=== PATIENT | female | born 1995 | race African-American/Black ===

== ENCOUNTER 2019-10-12 16:57 | Outpatient (CLI) | payer OTHER ==
[2019-10-12 17:42] LABS: APPEARANCE,URINE SLIGHTLY-CLOUDY; BILIRUBIN,URINE NEGATIVE (NEGATIVE); CALCIUM OXALATE CRYSTALS,URINE FEW /HPF; COLOR,URINE YELLOW; GLUCOSE, URINE NEGATIVE (NEGATIVE); KETONES,URINE NEGATIVE (NEGATIVE); LEUKOCYTE ESTERASE,URINE NEGATIVE (NEGATIVE); NITRITE,URINE NEGATIVE (NEGATIVE); PROTEIN,URINE 30 mg/dL (NEGATIVE); URINE SPECIFIC GRAVITY 1.029; UROBILINOGEN,URINE NEGATIVE mg/dL (<2.0)
[2019-10-12 17:57] LABS: URINE AMPHETAMINES SCREEN NEGATIVE; URINE BARBITURATES SCREEN NEGATIVE; URINE BENZODIAZEPINES SCREEN NEGATIVE; URINE COCAINE SCREEN NEGATIVE; URINE MARIJUANA (THC) SCREEN NEGATIVE; URINE METHADONE SCREEN NEGATIVE; URINE PHENCYCLIDINE SCREEN NEGATIVE
[2019-10-12] MEDS ORDERED: BUTALB/ACETAMINOPHEN/CAFFEINE 1 TAB EACH PO ONE (18:54)
[2019-10-12] MEDS ORDERED: PROMETHAZINE HCL INJ 50 MG/1 ML VIAL IM PRN (19:14)
[2019-10-12] MEDS ORDERED: PROMETHAZINE HCL INJ 25 MG/1 ML VIAL ONE (19:20)
[2019-10-12] MEDS ORDERED: BUTALB/ACETAMINOPHEN/CAFFEINE 1 TAB EACH ONE (19:20)
[2019-10-12] MEDS ORDERED: PROMETHAZINE HCL INJ 25 MG/1 ML VIAL IM PRN (19:21)
== END 2019-10-12 19:41 | disposition home or self-care (01) ==
LOC: LC 16:57
PROVIDERS: ATTEND Obstetrics & Gynecology
DX: O21.2 Late vomiting of pregnancy (principal); O26.892 Other specified pregnancy related conditions, second trimester; Z3A.22 22 weeks gestation of pregnancy
CPT/HCPCS: 81001; 80307; 59899; J3490; J2550

== ENCOUNTER 2020-01-19 11:29 | Outpatient (CLI) | payer OTHER, MEDICAID ==
[2020-01-19 12:22] LABS: ABSOLUTE EOSINOPHILS # (AUTO) 0.1 10^3/uL (0.0-0.6); ABSOLUTE LYMPHOCYTES (AUTO) 2.3 10^3/uL (0.5-4.7); ABSOLUTE MONOCYTES (AUTO) 0.7 10^3/uL (0.1-1.4); BASOPHILS % (AUTO) 0.3 % (0-2); EOSINOPHILS % (AUTO) 0.9 % (0-6); HEMOGLOBIN 11.3 g/dL (12.0-15.5); LYMPHOCYTES % (AUTO) 25.2 % (13-45); MEAN CORPUSCULAR HGB CONC 33.1 g/dL (32.0-36.0); MEAN CORPUSCULAR VOLUME 79 fl (80-97); PLATELET COUNT 283 10^3/uL (150-450); RED BLOOD COUNT 4.33 10^6/uL (3.72-5.28); RED CELL DISTRIBUTION WIDTH 15.2 % (11.5-14.0); SEGMENTED NEUTROPHILS % (AUTO) 65.6 % (42-78); TOTAL CELLS COUNTED % (AUTO) 100 %; WHITE BLOOD COUNT 9.2 10^3/uL (4.0-10.5)
[2020-01-19 12:39] LABS: ALBUMIN 3.1 g/dL (3.5-5.0); ALKALINE PHOSPHATASE 132 U/L (38-126); ASPARTATE AMINO TRANSFERASE 23 U/L (14-36); BILIRUBIN,DIRECT 0.1 mg/dL (0.0-0.4); BILIRUBIN,TOTAL 0.3 mg/dL (0.2-1.3); BLOOD UREA NITROGEN 4 mg/dL (7-20); CALCIUM 9.1 mg/dL (8.4-10.2); GLUCOSE 92 mg/dL (75-110); POTASSIUM 3.4 mmol/L (3.6-5.0); TOTAL PROTEIN 6.1 g/dL (6.3-8.2); URIC ACID 4.2 mg/dL (2.5-6.2)
[2020-01-19 12:45] LABS: ANION GAP 5 (5-19); CARBON DIOXIDE 27 mmol/L (22-30); CHLORIDE 104 mmol/L (98-107)
[2020-01-19 12:51] LABS: URINE AMPHETAMINES SCREEN NEGATIVE; URINE BARBITURATES SCREEN NEGATIVE; URINE BENZODIAZEPINES SCREEN NEGATIVE; URINE COCAINE SCREEN NEGATIVE; URINE MARIJUANA (THC) SCREEN NEGATIVE; URINE METHADONE SCREEN NEGATIVE; URINE PHENCYCLIDINE SCREEN NEGATIVE
[2020-01-19 12:53] LABS: APPEARANCE,URINE CLEAR; BILIRUBIN,URINE NEGATIVE (NEGATIVE); COLOR,URINE LIGHT YELLOW; GLUCOSE, URINE NEGATIVE (NEGATIVE)
[2020-01-19 12:54] LABS: ADD MANUAL MICROSCOPIC YES; KETONES,URINE NEGATIVE (NEGATIVE); LEUKOCYTE ESTERASE,URINE NEGATIVE (NEGATIVE); NITRITE,URINE NEGATIVE (NEGATIVE); PROTEIN,URINE NEGATIVE (NEGATIVE); RBC,URINE 0-1 /HPF; UROBILINOGEN,URINE NEGATIVE mg/dL (<2.0)
[2020-01-19 12:56] LABS: UR PRO/CREAT RATIO RESULT 0.2 mg/mg (0.0-0.2); URINE PROTEIN 22.4 mg/dL (<12)
--- NOTE | 2020-01-19 13:38 | Non Stress Test Report ---
Non Stress Test Datetime Report Generated by CPN: 01/19/2020 13:38 DEMOGRAPHIC EGA NST: 36.2 INDICATION Indication for Study (NST) Other: Pre E workup VITAL SIGNS Temperature - NST: 97.7 Pulse - NST: 82 RESP - NST: 20 NBPSYS NST: 155 NBPDIA NST: 92 MONITORING Monitor Explained: Monitor Explained; Test Explained; Patient Verbalized Understanding Time on Monitor: 01/19/2020 11:55 Time off Monitor: 01/19/2020 13:10 NST Duration: 75 NST INTERVENTIONS NST Interventions: PO Hydration Physician Notified NST: Payton MD BABY A: [id number] BABY A Movement : Present Contraction Frequency : None FHR Baseline : 130 Accelerations : 15X15 Decelerations : None Variability : Moderate 6-25bpm NST Review: Meets Criteria for Reactive NST NST Review and Verified By : DEMARCUS Tadeo Results: Reactive NST REPORT Report Trigger: Send Report
== END 2020-01-19 13:31 | disposition home or self-care (01) ==
LOC: LC 11:29
PROVIDERS: ATTEND Obstetrics & Gynecology Gynecology
DX: O16.3 Unspecified maternal hypertension, third trimester (principal); Z3A.36 36 weeks gestation of pregnancy
CPT/HCPCS: 36415; 80053; 80307; 81001; 82570; 83615; 84156; 84550; 85025

== ENCOUNTER 2020-01-23 19:39 | Inpatient (IN) | payer OTHER, MEDICAID ==
[2020-01-23] MEDS ORDERED: ZOLPIDEM TARTRATE 5 MG TABLET PO PRN (19:50)
[2020-01-23] MEDS ORDERED: ACETAMINOPHEN 325 MG TABLET PO PRN (19:50)
[2020-01-23] MEDS ORDERED: RINGERS SOLUTION,LACTATED 1,000 ML IV ONE (19:50)
[2020-01-23] MEDS ORDERED: DINOPROSTONE 10 MG VAGINAL INSERT.SR PV ONE (19:50)
[2020-01-23] MEDS ORDERED: MAG HYDROX/AL HYDROX/SIMETH SUSP 30 ML UDCUP PO PRN (19:50)
[2020-01-23 20:53] LABS: APPEARANCE,URINE CLEAR; BILIRUBIN,URINE NEGATIVE (NEGATIVE); COLOR,URINE YELLOW; GLUCOSE, URINE NEGATIVE (NEGATIVE); KETONES,URINE TRACE mg/dL (NEGATIVE); LEUKOCYTE ESTERASE,URINE NEGATIVE (NEGATIVE); NITRITE,URINE NEGATIVE (NEGATIVE); PROTEIN,URINE NEGATIVE (NEGATIVE); UROBILINOGEN,URINE NEGATIVE mg/dL (<2.0)
[2020-01-23 20:58] LABS: HEMATOCRIT 32.3 % (36.0-47.0); HEMOGLOBIN 10.6 g/dL (12.0-15.5); MEAN CORPUSCULAR HEMOGLOBIN 25.4 pg (27.0-33.4); MEAN CORPUSCULAR HGB CONC 32.7 g/dL (32.0-36.0); MEAN CORPUSCULAR VOLUME 78 fl (80-97); PLATELET COUNT 304 10^3/uL (150-450); RED BLOOD COUNT 4.16 10^6/uL (3.72-5.28); RED CELL DISTRIBUTION WIDTH 15.3 % (11.5-14.0); WHITE BLOOD COUNT 8.2 10^3/uL (4.0-10.5)
[2020-01-23 21:14] LABS: URINE AMPHETAMINES SCREEN NEGATIVE; URINE BARBITURATES SCREEN NEGATIVE; URINE BENZODIAZEPINES SCREEN NEGATIVE; URINE COCAINE SCREEN NEGATIVE; URINE MARIJUANA (THC) SCREEN NEGATIVE; URINE METHADONE SCREEN NEGATIVE; URINE PHENCYCLIDINE SCREEN NEGATIVE
[2020-01-23 21:24] LABS: ALKALINE PHOSPHATASE 134 U/L (38-126); ANION GAP 8 (5-19); ASPARTATE AMINO TRANSFERASE 25 U/L (14-36); BILIRUBIN,DIRECT 0.2 mg/dL (0.0-0.4); BILIRUBIN,TOTAL 0.4 mg/dL (0.2-1.3); BLOOD UREA NITROGEN 3 mg/dL (7-20); CALCIUM 9.2 mg/dL (8.4-10.2); CARBON DIOXIDE 26 mmol/L (22-30); CHLORIDE 103 mmol/L (98-107); GLUCOSE 116 mg/dL (75-110); POTASSIUM 3.6 mmol/L (3.6-5.0); URIC ACID 4.7 mg/dL (2.5-6.2)
[2020-01-23 21:24] LABS: UR PRO/CREAT RATIO RESULT 0.2 mg/mg (0.0-0.2); URINE CREATININE 112.3 mg/dL (16-327); URINE PROTEIN 26.7 mg/dL (<12)
[2020-01-23] MEDS ORDERED: LIDOCAINE 1% INJ-PF (10 MG/ML) 30 ML SDV ONE (21:30)
[2020-01-23] MEDS ORDERED: MISOPROSTOL 0.2 MG TABLET ONE (21:30)
[2020-01-23] MEDS ORDERED: OXYTOCIN 10 UNIT/ML VIAL ONE (21:30)
[2020-01-23] MEDS ORDERED: OXYTOCIN/0.9 % SODIUM CHLORIDE 30 UNIT/500 ML RTUINJ ONE (21:30)
[2020-01-23] MEDS ORDERED: DINOPROSTONE 10 MG VAGINAL INSERT.SR ONE (21:31)
[2020-01-23] MEDS ORDERED: ZOLPIDEM TARTRATE 5 MG TABLET ONE (21:45)
[2020-01-23] MEDS ORDERED: LABETALOL HCL INJ 20 MG/4 ML DISP.SYRIN IV ONE ×2 (23:23→23:40)
--- NOTE | 2020-01-24 01:52 | Admission Physical ---
Datetime Report Generated by CPN: 01/24/2020 01:52 CURRENT ADMISSION Chief Complaint: Scheduled Induction of Labor Chief Complaint Other: at 36.6 wks EGA for IOL d/t mild preE and gestational HTN on no meds. Indication for Induction: Eclampsia - Moderate; Maternal Diabetes Admit Impression : , Intrauterine Admit Plan: Admit to Unit; Initiate Labor Protocol ALLERGIES Medication Allergies: No Medication Allergies: No Known Allergies (01/23/2020) Latex: No Latex Allergies Food Allergies: OBSTETRICAL HISTORY EDC: 02/14/2020 00:00 : 2 Para: 0 Term: 0 : 0 SAB: 0 IAB: 1 Ectopic: 0 Livin Cesareans: 0 VBACs: 0 Multiple Births: 0 Gestational Diabetes: Yes Rh Sensitization: No Incompetent Cervix: No ILDA: No Infertility: No ART Treatment: No Uterine Anomaly: No IUGR: No Hx Previous C/S: No Macrosomia: No Hx Loss/Stillborn: No PIH: Yes Hx : No Placenta Previa/Abruption: No Depression/PP Depression: No Post Hemorrhage: No Current Procedures: Ultrasound; NST Obstetrical History Comments: - 2012 SAB 10weeks g2- Current, GDM SEE RECORDS Alcohol: No Marijuana : No Cocaine: No Other Illicit Drugs: No Cigarettes: Never Smoker. [id number] MEDICAL HISTORY Diabetes Type: Gestational Diabetes Blood Transfusion: No Pulmonary Disease (Asthma, TB): No Breast Disease: No Hypertension: Yes Accounts Receivable Manager Surgery: No Heart Disease: No Hosp/Surgery: No Autoimmune Disorder: No Anesthetic Complications: No Kidney Disease: No Abnormal Pap Smear: No Neuro/Epilepsy: No Psychiatric Disorders: No Other Medical Diseases: No Hepatitis/Liver Disease: No Significant Family History: No Varicosities/Phlebitis: No Trauma/Violence : No Thyroid Dysfunction: No INFECTIOUS HISTORY Gonorrhea: Yes Genital Herpes: Yes Chlamydia: Yes Tuberculosis: No Syphilis: No Hepatitis: No HIV/AIDS Exposure: No Rash or Viral Illness: No HPV: No Infectious History Comments: 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,treated, 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, given tx again, HSV-2 positive PHYSICAL EXAM General: Normal HEENT: Normal Neurologic: Normal Thyroid: Normal Heart: Normal Lungs: Normal Breast: Normal Back: Normal Abdomen: Normal Genitourinary Exam: Normal Extremities: Normal DTRs: Normal Pelvic Type: Adequate Vital Signs: Reviewed; Within Normal Limits VAGINAL EXAM Dilatation: 1 Effacement: 0 Station: 0 MEMBRANES Pooling: Negative Membranes: Intact FETUS A EGA: 36.3 Monitoring: External US FHR- Baseline: 135 Variability: Moderate 6-25bpm Accelerations: 15X15 Decelerations: None FHR Category: Category I Presentation: Vertex Admit Comment: 24 yo at 36.6 wks EGA iwth mild PreE and gestational diabetes on medications -Admit to LDR -NPO and IVFs: LR at 125 cc/hr after 1 liter of fluid -CEFM and toco -GBS negative -Accuchecks Q 6 hrs -Plan for cervidil induction of labor PLANS FOR LABOR AND DELIVERY Labor and Delivery: None Pain Management: Natural; Medications; Epidural Feeding Preference: Breast Circumcision: Yes INFORMED CONSENT Informed Consent Obtained: Vaginal Delivery; Induction of Labor; Risks, Benefits and Alternatives Discussed Signature: with User ID: Ada : with User ID: Ada
[2020-01-24] MEDS ORDERED: LABETALOL HCL INJ 20 MG/4 ML DISP.SYRIN IV ONE ×4 (02:29→07:38)
[2020-01-24] MEDS: RINGERS SOLUTION,LACTATED 1,000 ML IV PRN ×3 (02:36→20:50)
[2020-01-24] MEDS ORDERED: MAGNESIUM SULFATE 20 GM/500 ML RTUINJ IV ONE ×2 (07:30→18:31)
[2020-01-24] MEDS ORDERED: MAGNESIUM SULFATE 4 GM/100 ML RTUPB IV ONE ×2 (07:30→08:11)
[2020-01-24] MEDS ORDERED: MAGNESIUM SULFATE INJ 8 MEQ/2 ML IV ONE (07:39)
[2020-01-24] MEDS ORDERED: MAGNESIUM SULFATE PF/INJ 40 MEQ/10 ML SDV IV ONE (07:39)
[2020-01-24 08:25] LABS: ABSOLUTE LYMPHOCYTES (AUTO) 2.2 10^3/uL (0.5-4.7); ABSOLUTE MONOCYTES (AUTO) 0.6 10^3/uL (0.1-1.4); ABSOLUTE NEUT (AUTO) 4.8 10^3/uL (1.7-8.2); BASOPHILS % (AUTO) 0.5 % (0-2); EOSINOPHILS % (AUTO) 0.5 % (0-6); HEMATOCRIT 31.3 % (36.0-47.0); HEMOGLOBIN 10.4 g/dL (12.0-15.5); LYMPHOCYTES % (AUTO) 28.4 % (13-45); MEAN CORPUSCULAR HEMOGLOBIN 25.8 pg (27.0-33.4); MEAN CORPUSCULAR HGB CONC 33.3 g/dL (32.0-36.0); MEAN CORPUSCULAR VOLUME 77 fl (80-97); MONOCYTES % (AUTO) 7.8 % (3-13); PLATELET COUNT 288 10^3/uL (150-450); RED BLOOD COUNT 4.05 10^6/uL (3.72-5.28); RED CELL DISTRIBUTION WIDTH 14.9 % (11.5-14.0); SEGMENTED NEUTROPHILS % (AUTO) 62.8 % (42-78); TOTAL CELLS COUNTED % (AUTO) 100 %; WHITE BLOOD COUNT 7.6 10^3/uL (4.0-10.5)
[2020-01-24] MEDS ORDERED: NIFEDIPINE 10 MG CAPSULE ONE ×4 (08:29→21:23)
[2020-01-24] MEDS ORDERED: NIFEDIPINE 10 MG CAPSULE PO ONE ×4 (08:32→21:21)
[2020-01-24 08:51] LABS: ALBUMIN 2.9 g/dL (3.5-5.0); ALKALINE PHOSPHATASE 150 U/L (38-126); ANION GAP 7 (5-19); ASPARTATE AMINO TRANSFERASE 25 U/L (14-36); BILIRUBIN,DIRECT 0.1 mg/dL (0.0-0.4); BILIRUBIN,TOTAL 0.5 mg/dL (0.2-1.3); BLOOD UREA NITROGEN 2 mg/dL (7-20); CARBON DIOXIDE 24 mmol/L (22-30); CHLORIDE 104 mmol/L (98-107); GLUCOSE 110 mg/dL (75-110); POTASSIUM 3.1 mmol/L (3.6-5.0); TOTAL PROTEIN 5.8 g/dL (6.3-8.2); URIC ACID 4.6 mg/dL (2.5-6.2)
[2020-01-24] MEDS ORDERED: LABETALOL HCL 200 MG TABLET PO SCH (10:00)
[2020-01-24] MEDS ORDERED: SERTRALINE HCL 50 MG TABLET ONE (10:01)
[2020-01-24] MEDS ORDERED: VALACYCLOVIR HCL 500 MG TABLET ONE ×2 (10:01→22:09)
[2020-01-24] MEDS: SERTRALINE HCL 50 MG TABLET PO SCH (10:03)
[2020-01-24] MEDS: VALACYCLOVIR HCL 500 MG TABLET PO SCH ×2 (10:03→22:18)
[2020-01-24 12:13] LABS: CHLAM PCR NOT DETECTED (NOT DETECT)
[2020-01-24] MEDS ORDERED: NALBUPHINE HCL INJ 10 MG/1 ML AMPULE IV ONE (12:18)
[2020-01-24] MEDS ORDERED: PROMETHAZINE HCL INJ 25 MG/1 ML VIAL IV ONE (12:18)
[2020-01-24] MEDS ORDERED: PROMETHAZINE HCL INJ 25 MG/1 ML VIAL ONE (12:20)
[2020-01-24] MEDS ORDERED: NALBUPHINE HCL INJ 10 MG/1 ML AMPULE ONE (12:20)
[2020-01-24] MEDS ORDERED: OXYTOCIN/0.9 % SODIUM CHLORIDE 30 UNIT/500 ML RTUINJ IV PRN (12:37)
[2020-01-24] MEDS: MAGNESIUM SULFATE 20 GM/500 ML RTUINJ IV PRN (18:35)
[2020-01-24] MEDS ORDERED: ACETAMINOPHEN 325 MG TABLET ONE (18:52)
[2020-01-24] MEDS ORDERED: LABETALOL HCL 200 MG TABLET ONE (20:39)
[2020-01-24] MEDS: HYDRALAZINE HCL 10 MG TABLET PO SCH (20:49)
[2020-01-25] MEDS ORDERED: NIFEDIPINE 10 MG CAPSULE ONE ×2 (04:23→09:43)
[2020-01-25] MEDS ORDERED: MAGNESIUM SULFATE 20 GM/500 ML RTUINJ IV ONE ×2 (04:27→15:06)
[2020-01-25] MEDS ORDERED: LABETALOL HCL 200 MG TABLET ONE ×2 (05:11→23:52)
[2020-01-25] MEDS: LABETALOL HCL 200 MG TABLET PO SCH (05:28)
[2020-01-25] MEDS ORDERED: SERTRALINE HCL 50 MG TABLET ONE (09:17)
--- NOTE | 2020-01-25 09:17 | L&D Progress Notes ---
PROGRESS NOTES Datetime Report Generated by CPN: 01/25/2020 09:16 PROGRESS NOTE Impression Other: pre eclampsia Procedures: Artificial ROM; Intrauterine Pressure Catheter; Scalp Electrode; Sterile Vag Exam Plan: Continue Present Management; Induction Plan Other: Magnessium Sulfate at 2 gm/hour Informed Consent Obtained: Vaginal Delivery; Induction of Labor; Risks, Benefits and Alternatives Discussed Vital Signs : Reviewed Comment: IOL continues, Pitocin infusing, pt on Magnessium Sulfate 2 gm/hour. Denies headache, SOB. banegas cath in place w/ adequate UOP. VE /-2. AROM w/ clear blood tinged fluid. IUPC and FSE applied to better assess contraction pattern and FHR. Position changes encouraged, Dr Michael is the attending MD and agrees w/ plan of care. Pt may have an epidural if desires. VAGINAL EXAM Dilatation: 1 Effacement: 0 Station: 0 LAST VAGINAL EXAM-NURSING Nursing Exam Dilitation: 3.0 Nursing Exam Effacement: 50 Nursing Exam Station: -2 Nursing Exam Contractions: IUPC flushed with 10ml nss MEMBRANES Pooling: Negative Membranes: Ruptured Amniotic Fluid Color: Bloody FETUS A FHR - Baseline: 125 Monitoring: Internal Scalp Electrode Variability: Moderate 6-25bpm Accelerations: 10X10 Decelerations: None FHR Category: Category I : 36.3 Presentation: Vertex SIGNATURE SIGNATURE: [id number];[id number];[id number] Assignment: Jazmine Michael MD Signature: with User ID: Oriana : with User ID: Oriana
[2020-01-25] MEDS ORDERED: VALACYCLOVIR HCL 500 MG TABLET ONE ×2 (09:18→23:52)
[2020-01-25] MEDS: VALACYCLOVIR HCL 500 MG TABLET PO SCH ×2 (09:23→23:57)
[2020-01-25] MEDS: SERTRALINE HCL 50 MG TABLET PO SCH (09:23)
[2020-01-25] MEDS: RINGERS SOLUTION,LACTATED 1,000 ML IV PRN (09:24)
[2020-01-25] MEDS ORDERED: NALBUPHINE HCL INJ 10 MG/1 ML AMPULE INJ ONE (10:55)
[2020-01-25] MEDS ORDERED: PROMETHAZINE HCL INJ 25 MG/1 ML VIAL IV ONE (10:55)
[2020-01-25] MEDS ORDERED: PROMETHAZINE HCL INJ 25 MG/1 ML VIAL ONE (10:57)
[2020-01-25] MEDS ORDERED: NALBUPHINE HCL INJ 10 MG/1 ML AMPULE ONE (10:57)
[2020-01-25 11:21] LABS: ABSOLUTE LYMPHOCYTES (AUTO) 1.4 10^3/uL (0.5-4.7); ABSOLUTE MONOCYTES (AUTO) 0.6 10^3/uL (0.1-1.4); ABSOLUTE NEUT (AUTO) 7.6 10^3/uL (1.7-8.2); BASOPHILS % (AUTO) 0.4 % (0-2); EOSINOPHILS % (AUTO) 0.4 % (0-6); HEMATOCRIT 37.6 % (36.0-47.0); HEMOGLOBIN 12.3 g/dL (12.0-15.5); LYMPHOCYTES % (AUTO) 14.8 % (13-45); MEAN CORPUSCULAR HEMOGLOBIN 25.6 pg (27.0-33.4); MEAN CORPUSCULAR HGB CONC 32.9 g/dL (32.0-36.0); MEAN CORPUSCULAR VOLUME 78 fl (80-97); MONOCYTES % (AUTO) 6.5 % (3-13); PLATELET COUNT 298 10^3/uL (150-450); RED BLOOD COUNT 4.82 10^6/uL (3.72-5.28); RED CELL DISTRIBUTION WIDTH 15.3 % (11.5-14.0); SEGMENTED NEUTROPHILS % (AUTO) 77.9 % (42-78); TOTAL CELLS COUNTED % (AUTO) 100 %; WHITE BLOOD COUNT 9.8 10^3/uL (4.0-10.5)
[2020-01-25 11:45] LABS: ALBUMIN 3.2 g/dL (3.5-5.0); ALKALINE PHOSPHATASE 193 U/L (38-126); ANION GAP 7 (5-19); ASPARTATE AMINO TRANSFERASE 26 U/L (14-36); BILIRUBIN,DIRECT 0.2 mg/dL (0.0-0.4); BILIRUBIN,TOTAL 0.6 mg/dL (0.2-1.3); CALCIUM 8.6 mg/dL (8.4-10.2); CARBON DIOXIDE 25 mmol/L (22-30); CHLORIDE 104 mmol/L (98-107); GLUCOSE 115 mg/dL (75-110); POTASSIUM 3.2 mmol/L (3.6-5.0); TOTAL PROTEIN 6.5 g/dL (6.3-8.2); URIC ACID 4.8 mg/dL (2.5-6.2)
[2020-01-25 11:52] LABS: BLOOD UREA NITROGEN < 2 mg/dL (7-20)
[2020-01-25] MEDS ORDERED: FENTANYL/BUPIVACAINE/NS/PF 300 MCG/150 ML RTUINJ EPI ONE (14:49)
[2020-01-25] MEDS ORDERED: EPHEDRINE SULFATE INJ 50 MG/1 ML AMPULE ONE (14:49)
[2020-01-25] MEDS ORDERED: ROPIVACAINE HCL 0.2% INJ/PF (2 MG/ML) 20 ML SDV ONE (14:50)
--- NOTE | 2020-01-25 14:57 | L&D Progress Notes ---
PROGRESS NOTES Datetime Report Generated by CPN: 01/25/2020 14:57 PROGRESS NOTE Impression: Normal Progression of Labor; Reassuring Heart Rate Impression Other: pre eclampsia Procedures: Sterile Vag Exam Plan: Continue Present Management; Induction Plan Other: Magnessium Sulfate at 2 gm/hour Informed Consent Obtained: Vaginal Delivery; Induction of Labor; Risks, Benefits and Alternatives Discussed Vital Signs : Reviewed; Within Normal Limits Comment: Pt with adequate contractions, becoming uncomfortable now. VE 4/80/-2. May have epidural if desires. Denies headache. Position changes encouraged. Dr Michael updated on pts progress. VAGINAL EXAM Dilatation: 1 Effacement: 0 Station: 0 LAST VAGINAL EXAM-NURSING Nursing Exam Dilitation: 4.0 Nursing Exam Effacement: 80 Nursing Exam Station: -2 Nursing Exam Contractions: [id number] MEMBRANES Pooling: Negative Membranes: Ruptured Amniotic Fluid Color: Clear FETUS A FHR - Baseline: 125 Monitoring: External US Variability: Moderate 6-25bpm Accelerations: 15X15 Decelerations: None FHR Category: Category I : 36.3 Presentation: Vertex SIGNATURE SIGNATURE: [id number];[id number];[id number] Assignment: Jazmine Michael MD Signature: with User ID: Oriana : with User ID: Oriana
[2020-01-25] MEDS: MAGNESIUM SULFATE 20 GM/500 ML RTUINJ IV PRN (15:30)
[2020-01-25] MEDS ORDERED: ACETAMINOPHEN 325 MG TABLET PO ONE (18:29)
[2020-01-25] MEDS ORDERED: ACETAMINOPHEN 325 MG TABLET ONE (18:38)
[2020-01-25] MEDS ORDERED: OXYTOCIN/0.9 % SODIUM CHLORIDE 30 UNIT/500 ML RTUINJ ONE (20:35)
[2020-01-25] MEDS ORDERED: IBUPROFEN 800 MG TABLET ONE (23:52)
[2020-01-26] MEDS ORDERED: ACETAMINOPHEN WITH CODEINE #3 TABLET PO PRN ×2 (01:44)
[2020-01-26] MEDS ORDERED: GLYCERIN/WITCH HAZEL LEAF 1 EACH MED..WIPE TP PRN (01:44)
[2020-01-26] MEDS ORDERED: BENZOCAINE/MENTHOL AEROSOL SPRAY 56 ML TOP PRN (01:44)
[2020-01-26] MEDS ORDERED: ACETAMINOPHEN 325 MG TABLET PO PRN (01:44)
[2020-01-26] MEDS ORDERED: OXYTOCIN/0.9 % SODIUM CHLORIDE 30 UNIT/500 ML RTUINJ IV PRN (01:44)
[2020-01-26] MEDS ORDERED: ZOLPIDEM TARTRATE 5 MG TABLET PO PRN (01:44)
[2020-01-26] MEDS ORDERED: NA PHOS,M-B/NA PHOS,DI-BA (ADULT) 133 ML ENEMA PR PRN (01:44)
[2020-01-26] MEDS ORDERED: PROMETHAZINE HCL INJ 25 MG/1 ML VIAL IV PRN (01:44)
[2020-01-26] MEDS ORDERED: MEASLES,MUMPS&RUBELLA VACC/PF 0.5 ML VIAL SUBCUT PRN (01:44)
[2020-01-26] MEDS ORDERED: PSEUDOEPHEDRINE HCL 30 MG TABLET PO PRN (01:44)
[2020-01-26] MEDS ORDERED: DIBUCAINE 1% OINTMENT 28 GM TP PRN (01:44)
[2020-01-26] MEDS ORDERED: PROMETHAZINE HCL 25 MG TABLET PO PRN (01:44)
[2020-01-26] MEDS ORDERED: ACETAMINOPHEN 650 MG SUPP.RECT PR PRN (01:44)
[2020-01-26] MEDS ORDERED: PROMETHAZINE HCL 25 MG SUPP.RECT PR PRN (01:44)
[2020-01-26] MEDS ORDERED: DIPHENHYDRAMINE HCL 25 MG CAPSULE PO PRN (01:44)
[2020-01-26] MEDS ORDERED: DIPH/PERTUSS(ACELL)/TETANUS VAC/PF 0.5 ML SYR (>=10YO) IM PRN (01:44)
[2020-01-26] MEDS ORDERED: MAGNESIUM HYDROXIDE SUSP 30 ML UDCUP PO PRN (01:44)
[2020-01-26] MEDS: LABETALOL HCL 200 MG TABLET PO SCH ×4 (03:11→22:01)
[2020-01-26] MEDS: IBUPROFEN 800 MG TABLET PO SCH ×3 (05:34→22:00)
[2020-01-26] MEDS: HYDRALAZINE HCL 10 MG TABLET PO SCH (07:44)
[2020-01-26] MEDS: DOCUSATE SODIUM 100 MG CAPSULE PO SCH ×2 (09:38→18:04)
[2020-01-26] MEDS: PRENATAL VITAMIN W DHA CAPSULE PO SCH (09:38)
[2020-01-26] MEDS: VALACYCLOVIR HCL 500 MG TABLET PO SCH ×2 (09:38→22:01)
[2020-01-26] MEDS: FAMOTIDINE 20 MG TABLET PO SCH ×2 (09:38→22:01)
[2020-01-26] MEDS: SERTRALINE HCL 50 MG TABLET PO SCH (09:38)
[2020-01-26] MEDS: SENNOSIDES/DOCUSATE 8.6-50 MG 1 EACH TABLET PO SCH (09:38)
[2020-01-26] MEDS: FERROUS SULFATE 325 MG TABLET PO SCH ×2 (09:38→18:04)
--- NOTE | 2020-01-26 11:26 | PDOC PROGRESS REPORT ---
Subjective-OB Progress Note for:: 01/26/20 Subjective: pt doing well, sitting up in bed, breast feeding, no c/o Physical Exam (OB) Vital Signs: Temp Pulse Resp BP Pulse Ox 98.1 F 93 17 140/86 H 97 01/26/20 07:50 01/26/20 07:50 01/26/20 07:50 01/26/20 07:50 01/26/20 07:50 Intake & Output 01/25/20 01/26/20 01/27/20 06:59 06:59 06:59 Intake Total 2133 943 1000 Balance 2133 943 1000 - PIH/Pre-Eclampsia DTR's: 2 + Clonus: Negative Headache: Absent Epigastric Pain: No Visual Changes: No - Maternal Morbidity 59. Maternal Morbidity (serious complications experinced by the mother associated with labor and delivery: None of the above - Lochia Lochia Amount: Scant < 10 ml Lochia Color: Rubra/Red - Abdomen Description: Soft Hernia Present: No Fundal Description: Firm, Midline Fundal Height: u/u - u/2 Objective-Diagnostic Laboratory: 01/25/20 11:01 01/25/20 11:01 01/25/20 01/25/20 01/25/20 11:01 11:01 18:22 Sodium 135.5 L Potassium 3.2 L Chloride 104 Carbon Dioxide 25 Anion Gap 7 BUN < 2 L Creatinine 0.52 Est GFR ( Amer) > 60 Glucose 115 H Uric Acid 4.8 Calcium 8.6 Magnesium 4.9 H* 4.6 H* Total Bilirubin 0.6 AST 26 Alkaline Phosphatase 193 H Total Protein 6.5 Albumin 3.2 L Assessment and Plan(PN) - Assessment and Plan (1) Mild pre-eclampsia Qualifiers: Trimester: third trimester Qualified Code(s): O14.03 - Mild to moderate pre-eclampsia, third trimester Is this a current diagnosis for this admission?: Yes (2) Gestational diabetes mellitus Qualifiers: Gestational diabetes mellitus control: diet-controlled Is this a current diagnosis for this admission?: Yes (3) Delivery normal Is this a current diagnosis for this admission?: Yes - Time Spent with Patient Time with patient: Less than 15 minutes Medications reviewed and adjusted accordingly: Yes - Disposition Anticipated Discharge Disposition: Home, Self Care Anticipated Discharge Timeframe: within 24 hours
[2020-01-26 14:42] LABS: HEMATOCRIT 32.7 % (36.0-47.0); HEMOGLOBIN 10.8 g/dL (12.0-15.5); MEAN CORPUSCULAR HEMOGLOBIN 25.8 pg (27.0-33.4); MEAN CORPUSCULAR VOLUME 78 fl (80-97); PLATELET COUNT 289 10^3/uL (150-450); RED CELL DISTRIBUTION WIDTH 15.3 % (11.5-14.0); WHITE BLOOD COUNT 16.5 10^3/uL (4.0-10.5)
[2020-01-27] MEDS: IBUPROFEN 800 MG TABLET PO SCH (05:18)
[2020-01-27] MEDS: VALACYCLOVIR HCL 500 MG TABLET PO SCH (10:02)
[2020-01-27] MEDS: LABETALOL HCL 200 MG TABLET PO SCH (10:02)
[2020-01-27] MEDS: FERROUS SULFATE 325 MG TABLET PO SCH (10:03)
[2020-01-27] MEDS: SERTRALINE HCL 50 MG TABLET PO SCH (10:03)
[2020-01-27] MEDS: PRENATAL VITAMIN W DHA CAPSULE PO SCH (10:03)
[2020-01-27] MEDS: DOCUSATE SODIUM 100 MG CAPSULE PO SCH (10:05)
[2020-01-27] MEDS: SENNOSIDES/DOCUSATE 8.6-50 MG 1 EACH TABLET PO SCH (10:05)
[2020-01-27] MEDS: FAMOTIDINE 20 MG TABLET PO SCH (10:05)
[2020-01-27 12:05] VITALS: BP 140/86
--- NOTE | 2020-01-31 14:34 | Delivery Summary ---
Del Sum A-C Datetime Report Generated by CPN: 01/31/2020 14:33 DELIVERY PERSONNEL DELIVERY PERSONNEL: [id number] Delivery Doctor:: Jazmine Michael MD Labor and Delivery Nurse:: Reyna Lopez RN Nursery Nurse:: Katie Geronimo RN Nursery Nurse:: Katie Cazares RN Coating Technician/PANTS CLOSER: Lucie Green, ST MATERNAL INFORMATION Delivery Anesthesia: Epidural Medications After Delivery: Pitocin Bolus-Please Comment; Pitocin 30 Units in 500ml NS/D5W Estimated Blood Loss (ml): 150 Delivery QBL: 150 Maternal Complications: None; Other Complication Details: pre-e LABOR SUMMARY EDC: 02/14/2020 00:00 No. Babies in Womb: 1 Attempted: No Labor Anesthesia: Epidural LABOR INFORMATION Reason for Induction: Pre-Eclampsia Onset of Labor: 01/25/2020 18:03 Complete Dilatation: 01/25/2020 22:24 Cervical Ripening Agents: Cervidil Oxytocin: Induction Group B Beta Strep: Negative Antibiotics # of Doses: 0 Name of Antibiotic Given: n/a Steroids Given: None Reason Steroids Not Administered: Not Applicable MEMBRANES Membranes Rupture Method: Artificial Rupture of Membranes: 01/25/2020 09:00 Length of Rupture (hr): 13.87 Amniotic Fluid Color: Clear Amniotic Fluid Amount: Small Amniotic Fluid Odor: Normal STAGES OF LABOR Stage 1 hr: 4 Stage 1 min: 21 Stage 2 hr: 0 Stage 2 min: 28 Stage 3 hr: 0 Stage 3 min: 4 Total Time in Labor hr: 4 Total Time in Labor min: 53 VAGINAL DELIVERY Episiotomy: None Laceration #1: None Laceration Extension #1: N/A Laceration Repair: Not Applicable Sponge Count Correct: N/A Sharps Count Correct: N/A CSECTION DELIVERY Primary Indication: N/A Secondary Indication: N/A CSection Incidence: N/A Labor: N/A Elective: N/A CSection Incision: N/A BABY A INFORMATION Infant Delivery Date/Time: 01/25/2020 22:52 Method of Delivery: Vaginal Method of Delivery: Vaginal Nurse Controlled Delivery: No Born in Route : No : N/A Forceps: N/A Vacuum Extraction: N/A Shoulder Dystocia : No PRESENTATION/POSITION BABY A Presentation: Cephalic Presentation: Cephalic Presentation: Cephalic Presentation: Cephalic Presentation: Cephalic Presentation: Cephalic Presentation: Cephalic Cephalic Presentation: Vertex Vertex Position: Left Occipital Anterior Breech Presentation: N/A PLACENTA INFORMATION BABY A Placenta Delivery Time : 01/25/2020 22:56 Placenta Method of Delivery: Spontaneous Placenta Status: Delivered SCORES BABY A Heart Rate 1 min: >100 bpm Resp Effort 1 min: Good Cry Reflex Irritability 1 min: Cough or Sneeze or Pulls Away Muscle Tone 1 min: Active Motion Color 1 min: Body White [place], Extremities Blue Resuscitation Effort 1 min: N/A SCORE 1 MIN: 9 Heart Rate 5 min: >100 bpm Resp Effort 5 min: Good Cry Reflex Irritability 5 min: Cough or Sneeze or Pulls Away Muscle Tone 5 min: Active Motion Color 5 min: Body White [place], Extremities Blue Resuscitation Effort 5 min: N/A SCORE 5 MIN: 9 INFANT INFORMATION BABY A Gestational Age at Delivery: 37.1 Gestational Status: Early Term- 37- 38.6 Weeks Infant Outcome : Liveborn Infant Condition : Stable Infant Sex: Male Sex: Male IDENTIFICATION BABY A Verification Date/Time: 01/25/2020 23:29 ID Band Number: [id number] Mother's Name Verified: Yes RN Verifying Infant: Ramon John RN/ Renaldo Diaz, RNC WEIGHT/LENGTH BABY A Birthweight (gm): 3200 Infant Weight (lb): 7 Weight (oz): 1 Infant Length (in): 19.50 Length (cm): 49.53 CORD INFORMATION BABY A No. Cord Vessels: 3 Nuchal Cord : N/A Cord Blood Taken: Yes-For Eval (Mom's Blood Type - or O+) Suction: Mouth; Nose ASSESSMENT BABY A Skin to Skin: Yes Skin to Skin Time (min): 60 BABY B INFORMATION : N/A SIGNATURES Signature: Electronically signed by Jazmine Alec, MD ([facility]) on 01/25/2020 at 22:59 with User ID: [email or web address]
== END 2020-01-27 15:30 | disposition home or self-care (01) | DRG 806 ==
LOC: LR 19:39 → 2S 01-26 02:00
PROVIDERS: ADMIT Obstetrics & Gynecology; ATTEND Obstetrics & Gynecology
PROC: 10E0XZZ Delivery of Products of Conception, External Approach (ICD-10-PCS; principal; 2020-01-23)
PROC: 3E033VJ Introduction of Other Hormone into Peripheral Vein, Percutaneous Approach (ICD-10-PCS; 2020-01-23)
PROC: 10907ZC Drainage of Amniotic Fluid, Therapeutic from Products of Conception, Via Natural or Artificial Opening (ICD-10-PCS; 2020-01-23)
PROC: 3E0334Z Introduction of Serum, Toxoid and Vaccine into Peripheral Vein, Percutaneous Approach (ICD-10-PCS; 2020-01-23)
DX: O15.1 Eclampsia complicating labor (principal); O98.32 Other infections with a predominantly sexual mode of transmission complicating childbirth; Z37.0 Single live birth; O98.22 Gonorrhea complicating childbirth; O26.43 Herpes gestationis, third trimester; O24.425 Gestational diabetes mellitus in childbirth, controlled by oral hypoglycemic drugs; O13.4 Gestational [pregnancy-induced] hypertension without significant proteinuria, complicating childbirth; A56.8 Sexually transmitted chlamydial infection of other sites; Z3A.36 36 weeks gestation of pregnancy
CPT/HCPCS: 1967; 36415; 80053; 80307; 81001; 82570; 82962; 83615; 83735; 84156; 84550; 85025; 85027; 85461; 86592; 86850; 86870; 86900; 86901; 87491; 87591; 94760; J2300; J2550; J2590; J2790; J2795; J3010; J3475; J3490